=== PATIENT | male | born 1945 | race Caucasian/White ===

== ENCOUNTER 2017-01-28 10:35 | Day surgery (SDC) | payer OTHER ==
[~2017-01-28] VITALS: Ht 165.1 cm; Wt 90.3 kg
[2017-01-28 11:06] VITALS: Ht 165.1 cm; Wt 90.3 kg
[2017-01-28] MEDS ORDERED: ASPI-664 PO (11:12)
[2017-01-28] MEDS ORDERED: ATORVASTATIN PO (11:12)
[2017-01-28] MEDS ORDERED: JANUMET PO (11:12)
[2017-01-28] MEDS ORDERED: LISINOPRIL PO (11:12)
[2017-01-28 11:36] VITALS: BP 149/71; PULSE 80; RESP 18
[2017-01-28] MEDS ORDERED: LIDOCAINE 2% (SDV) 5 ML INJ ONE (12:00)
[2017-01-28] MEDS ORDERED: FENTAnyl 50 MCG/ML VIAL ONE (12:00)
[2017-01-28] MEDS ORDERED: PROPOFOL 40 ML ONE (12:00)
[2017-01-28] MEDS ORDERED: MIDAZOLAM 1 MG/ML 2 ML INJ ONE (12:00)
[2017-01-28 13:15] VITALS: BP 162/95; PULSE 61; RESP 18
--- NOTE | 2017-01-28 14:09 | GILP ---
DATE OF PROCEDURE: 01/28/2017 NAME OF PROCEDURES: 1. Esophagogastroduodenoscopy and biopsy. 2. Colonoscopy and biopsy. SURGEON: Racquel Holbrook MD PREOPERATIVE DIAGNOSES: 1. Abdominal pain. 2. Change in the bowel habit. 3. Screening colonoscopy. POSTOPERATIVE DIAGNOSES: 1. Hiatal hernia. 2. Gastroesophageal reflux disease. 3. Gastritis with erosions. 4. Gastric mucosal biopsies were taken for Helicobacter pylori test. 5. Colonoscopy all the way to the cecum. 6. Small sigmoid colon polyp was removed using the biopsy forceps. 7. Internal hemorrhoids. INDICATION FOR THE PROCEDURE: Mr. Lawson Law is a 71-year-old male patient who had upper ab dominal pain, not responding to therapy. He also noticed a change in the bowel habit. He never had a screening colonoscopy. The procedures and possible complications were well explained to the patient, he understood and cons ented to the procedures. DESCRIPTION OF PROCEDURE: Under the influence of anesthesia, the gastroscope was carefully introduc ed into the esophagus and under direct vision, it was advanced to the stomach and through the pyloru s into the duodenal bulb and descending duodenum. FINDINGS: ESOPHAGUS: The patient had hiatal hernia and gastroesophageal reflux disease. STOMACH: He had gastritis with erosions. Gastric mucosal biopsies were taken for H. pylori test. DUODENUM: Normal. The colonoscope was carefully introduced in the rectum and under direct vision, it was advanced all the way to the cecum. FINDINGS: The patient had a small sigmoid colon polyp and it was removed using the biopsy forceps. He was noted to have internal hemorrhoids. He tolerated the procedures very well and there was no complication from the procedures. At the end of the procedures, he was awake with stable vital signs and he was discharged home to the care of h is family. IMPRESSION: Please see postoperative diagnoses. PLAN: 1. Omeprazole 40 mg p.o. q.a.m. 2. Await histopathology reports. 3. Next screening colonoscopy in 10 years. Dictated By: RACQUEL SALOMON/CHARLEY Conf#: [id number] DID#: [id number] CC: RACQUEL HOLBROOK MD;*EndCC*
== END 2017-01-28 15:03 | disposition home or self-care (01) ==
LOC: GIL 10:35
PROVIDERS: ATTEND Internal Medicine Gastroenterology
DX: R10.10 Upper abdominal pain, unspecified (principal); Z12.11 Encounter for screening for malignant neoplasm of colon; K44.9 Diaphragmatic hernia without obstruction or gangrene; R19.8 Other specified symptoms and signs involving the digestive system and abdomen; K29.70 Gastritis, unspecified, without bleeding; K63.5 Polyp of colon; K64.8 Other hemorrhoids; K21.9 Gastro-esophageal reflux disease without esophagitis; I10 Essential (primary) hypertension; E11.9 Type 2 diabetes mellitus without complications; D12.6 Benign neoplasm of colon, unspecified
CPT/HCPCS: 43239; 45380; 82962; 87081; 88305; J2250; J3010; Z7610

== ENCOUNTER 2018-06-24 07:16 | Day surgery (SDC) | END 2018-06-24 12:00 | disposition home or self-care (01) ==

== ENCOUNTER 2019-01-06 08:25 | Day surgery (SDC) | payer OTHER ==
[~2019-01-06] VITALS: Ht 165.1 cm; Wt 93.0 kg
[2019-01-06] VITALS (14 sets, daily range): BP systolic 111–152; BP diastolic 61–76; PULSE 50–66; RESP 15–22; Ht 165.1 cm; Wt 93.0 kg
[~2019-01-06 08:25] MED LIST: ASPI81TA52 PO; ATOR20TA38 PO; CYCLOPENTOLATE 2% 2 ML OPH OPER SCH; GLIP10TA14 PO; LISI-471 PO; NEPAFENAC 0.1% 3 ML OPH OPER SCH; OMEP20CA16 PO; SITA1TAB5 PO
[2019-01-06] MEDS: PHENYLephrine 10% 5 ML OPH OPER SCH ×2 (09:13→10:41)
[2019-01-06] MEDS: MOXIFLOXACIN 0.5% 3 ML OPH OPER ONE ×2 (09:13→10:43)
--- NOTE | 2019-01-06 09:42 | PREAC ---
Date/Time of Note Date/Time of Note DATE: 01/06/19 TIME: 09:40 Anesthesia Eval and Record Evaluation Time Pre-Procedure Interview DATE: 01/06/19 TIME: 09:40 Age 73 Sex male NPO: 8 hrs Preoperative diagnosis Right eye cataract Planned procedure Phacoemulsification of cataract Past Medical History Past Medical History: Includes Cardio: HTN, Dyslipidemia Endo: Diabetes GI: GERD, Obesity Surgery & Anesthesia Issues No known issue Meds Anticoagulation: No Beta Zahra within 24 hr: No Reason Beta Zahra not given: Pt. not on B-Zahra Reported Medications Omeprazole* (Omeprazole*) 20 Mg Capsule.dr, 20 MG PO BID, #60 CAP 06/24/18 Lisinopril* (Lisinopril*) 20 Mg Tablet, 20 MG PO DAILY, #30 TAB 06/24/18 Sitagliptin Phos/Metformin HCl (Janumet 50-1,000 mg Tablet) 1 Each Tablet, 1 EACH PO BID, TAB 06/24/18 Glipizide* (Glipizide*) 10 Mg Tablet, 10 MG PO AC BREAKFAST DINNER, TAB 06/24/18 Atorvastatin Calcium* (Atorvastatin Calcium*) 20 Mg Tablet, 20 MG PO QHS, #30 TAB 06/24/18 Aspirin (Low Dose Aspirin) 81 Mg Tablet.dr, 81 MG PO DAILY, #30 TAB 06/24/18 Current Medications Cyclopentolate HCl (Cyclogyl 2% Oph) 1 drop Q5 MIN X 3 OPER Last administered on 01/06/19at 09:13; Admin Dose 1 DROP; Start 01/06/19 at 06:00 Phenylephrine HCl (Ak-Dilate 10%) 1 drop Q5 MIN X3 OPER Last administered on 01/06/19at 09:13; Admin Dose 1 DROP; Start 01/06/19 at 06:00 Nepafenac ([place] Oph) 1 drop Q5 MIN X3 OPER Last administered on 01/06/19at 09:13; Admin Dose 1 DROP; Start 01/06/19 at 06:00 Meds reviewed: Yes Allergies Coded Allergies: No Known Allergy (Unverified , 01/06/19) Allergies Reviewed: Yes Labs/Studies Labs Reviewed: Reviewed by anesthesiologist test: N/A Pre-procedure Exam Airway: Adequate mouth opening Mallampati: Mallampati II Teeth: Abnormal (Upper partial denture) Lung: Normal Heart: Normal ASA Physical Status ASA physical status: 3 Emergency: None Planned Anesthetic General/MAC: LMA Planned Pain Management Parenteral pain med Pre-operative Attestations Prior to commencing anesthesia and surgery, the patient was re-evaluated, there was verification of: *The patient's identity *The results of appropriate recent lab work and preoperative vital signs *The above evaluation not changing prior to induction *Anesthetic plan, risk benefits, alternative and complications discussed with patient/family; questions answered; patient/family understands, accepts and wis hes to proceed. TAY CHRISTIE MD Jan 06, 2019 09:42
[2019-01-06] MEDS ORDERED: LIDOCAINE 1% (MPF) 10 ML INJ ONE (09:45)
[2019-01-06] MEDS ORDERED: TIMOLOL MALEATE/PF 0.5% OCCUDOSE (0.3 ML) ONE (09:46)
[2019-01-06] MEDS ORDERED: EPINEPHrine 1 MG INJ ONE (09:47)
[2019-01-06] MEDS ORDERED: NA BICARB 50 MEQ/50 ML VIAL ONE (09:47)
[2019-01-06] MEDS ORDERED: LIDOCAINE 2% (SDV) 5 ML INJ ONE ×2 (09:48→09:54)
[2019-01-06] MEDS ORDERED: PROPOFOL 20 ML ONE (09:54)
[2019-01-06] MEDS ORDERED: FENTAnyl 50 MCG/ML VIAL IV PRN ×3 (10:00)
[2019-01-06] MEDS ORDERED: LABETALOL HCL 20MG INJ IV PRN (10:00)
[2019-01-06] MEDS ORDERED: MEPERIDINE 25 MG INJ IV PRN (10:00)
[2019-01-06] MEDS ORDERED: ONDANSETRON 4 MG INJ IV PRN (10:00)
[2019-01-06] MEDS ORDERED: OXYCODONE/ACETAMINOPHEN (5/325) TAB PO PRN ×2 (10:00)
[2019-01-06] MEDS ORDERED: DIPHENHYDRAMINE 50 MG INJ IV PRN (10:00)
[2019-01-06] MEDS ORDERED: MIDAZOLAM 1 MG/ML 2 ML INJ IV PRN (10:00)
[2019-01-06] MEDS ORDERED: METOCLOPRAMIDE 10 MG INJ IV PRN (10:00)
[2019-01-06] MEDS ORDERED: hydrALAzine 20 MG INJ IV PRN (10:00)
[2019-01-06] MEDS ORDERED: EPHEDrine SULFATE 50 MG/5 ML SYG IV PRN (10:00)
--- NOTE | 2019-01-06 10:18 | HPN ---
Date/Time of Note Date/Time of Note DATE: 01/06/19 TIME: 10:18 Interval H&P Admission Note Pt. seen H&P reviewed: No system changes JUAN VIDAL MD Jan 06, 2019 10:18
--- NOTE | 2019-01-06 11:03 | SIPON ---
Date/Time of Note Date/Time of Note DATE: 01/06/19 TIME: 10:59 Operative Report Preoperative Diagnosis senile cataract right eye Postoperative Diagnosis same Operation/Procedure Performed phacoemulsification of cataract Surgeon see signature line drafter assistant none Anesthesia: general Estimated blood loss: none Transfusion Required none Specimen none Grafts/Implants none Complications none JUAN VIDAL MD Jan 06, 2019 11:03
--- NOTE | 2019-01-06 12:58 | PAC ---
Date/Time of Note Date/Time of Note DATE: 01/06/19 TIME: 12:58 Post-Anesthesia Notes Post-Anesthesia Note Last documented vital signs Vital Signs Date Temp Pulse Resp B/P (MAP) Pulse Ox O2 O2 Flow FiO2 Time Delivery Rate 01/06/19 50 15 123/64 95 Room Air 12:02 (83) 01/06/19 98.7 11:15 Activity: WNL Respiratory function: WNL Cardiovascular function: WNL Mental status: Baseline Pain reasonably controlled: Yes Hydration appropriate: Yes Nausea/Vomiting absent: Yes Comments BT: 98.4 TAY CHRISTIE MD Jan 06, 2019 12:58
--- NOTE | 2019-01-06 14:35 | OPR ---
DATE OF OPERATION: 01/06/2019 PREOPERATIVE DIAGNOSIS: Senile cataract, right eye. POSTOPERATIVE DIAGNOSIS: Senile cataract, right eye. OPERATION PERFORMED: Phacoemulsification of cataract, right eye. DESCRIPTION OF PROCEDURE: Following standard preparation and draping of the patient, a speculum was placed for immobilization of the lids. A posterior limbal access port was made in the superior tempo ral quadrant following which the anterior chamber was filled with viscoelastic material. A 3 mm ante rior limbal incision was made in the inferior temporal quadrant following which a circular capsulorrh exis was performed. The major portion of the lens cortex and nucleus were from the capsule using both hydrodissection and hydrodelineation. Phacoemulsification tip was introduced into the ey e and controlling tumbling of the lens with a 2-handed technique, the major portion of the lens jeanna x and nucleus were removed. The remainder of the cortical material was removed with the irrigating a spirating tip. Because this patient's eye was so myopic that no intraocular lens was available and t he power needed for him. No lens was placed in the eye. The viscoelastic material was removed follo wing which one suture was placed for satisfactory watertight closure of the corneal incision. One dr op of timolol and 1 drop of Vigamox was placed in the eye. A light pressure dressing applied. The p atient returned to the recovery room in satisfactory condition. Dictated By: JUAN CURTIS/CHARLEY Conf#: [id number] DID#: [id number] CC: JUAN VIDAL MD;*EndCC*
== END 2019-01-06 13:39 | disposition home or self-care (01) ==
LOC: SDS 08:25
PROVIDERS: ATTEND Ophthalmology
DX: H25.11 Age-related nuclear cataract, right eye (principal); I10 Essential (primary) hypertension; E11.9 Type 2 diabetes mellitus without complications; E78.5 Hyperlipidemia, unspecified
CPT/HCPCS: 66984; 82962; J0171; Z7512; Z7610